=== PATIENT | female | born 1960 | race Caucasian/White ===

== ENCOUNTER 2021-06-11 01:13 | Observation (INO) | payer BC, SELFPAY ==
[2021-06-10 11:20] VITALS: BP 153/79; PULSE 82; RESP 16; TEMP 36.1; O2SAT 100
[2021-06-10 23:05] VITALS: BMI 24.0
[2021-06-11] VITALS (12 sets, daily range): BP systolic 114–145; BP diastolic 57–86; PULSE 66–105; RESP 12–18; TEMP 35.9–37.1; O2SAT 93–100
--- NOTE | ~2021-06-11 | XR_ITS ---
EXAMINATION: XR chest 1V portable DATE: 06/11/2021 07:39 INDICATION: COVID positive presenting with shortness of breath and vomiting TECHNIQUE: frontal view of the chest was obtained. COMPARISON: None FINDINGS: The lungs are clear with no focal airspace opacities, pulmonary edema, pleural effusion or pneumothor ax. The cardiomediastinal silhouette is normal. Mall round opacities projecting over the metadiaphyse al regions of the bilateral humeri but with similar rounded opacity projecting across the lateral cor ebony of the right first rib suggesting these represent snaps or other object external to the patient r ather than sclerotic bone lesions. IMPRESSION: 1. No acute cardiopulmonary disease. 2. Round opacities projecting over the bilateral proximal humeri with additional project over the rig ht first rib likely representing material external to the patient, possibly snaps. Correlate with phy sical exam. Reviewed, dictated and finalized at location A. IMPRESSION: 1. No acute cardiopulmonary disease. 2. Round opacities projecting over the bilateral proximal humeri with additiona l project over the right first rib likely representing material external to the patient, possibly snaps. Correlate with physical exam.
--- NOTE | ~2021-06-11 | NM_ITS ---
EXAMINATION: NM pulmonary perfusion DATE: 06/12/2021 11:29 INDICATION: Shortness of breath. TECHNIQUE: 5.2 mCi Tc-99m MAA was administered intravenously for perfusion images. Scintigraphic karen ges of the chest were obtained. COMPARISON: Chest single view 06/11/2021 FINDINGS: Perfusion images show large defects in the upper lobes correlating with emphysema on radiographs. IMPRESSION: 1. Pulmonary embolism absent (low probability for pulmonary embolism). Reviewed, dictated and finalized at location A.
--- NOTE | 2021-06-11 00:02 | ADMGEN ---
This patient, Maureen Montgomery, was admitted to IMU Room 231-01. Patient/family oriented to hospital policies and general routines including ID bracelet, bed and alarms, visiting hours, pain management, procedures, bathroom and other care routines, personal items, smoking policy, room service/diet, and visiting hours. Information on how to activate the Rapid Response Team has been discussed. Patient/Family are encouraged to report perceived risks to care and to ask questions if they do not understand what they are told or what they should do.
--- NOTE | 2021-06-11 01:15 | ECG_ITS ---
Measurements Intervals [place] Rate: 76 P: 48 OR: 148 QRS: -17 QRSD: 98 T: 9 QT: 387 QTc: 435 Interpretive Statements SINUS RHYTHM WITH SINUS ARRHYTHMIA BASELINE ARTIFACT- V3-V6 NORMAL ECG Electronically Signed On 06-11-2021 17:09:08 CDT by Aroldo Yo D.O.
[2021-06-11 02:51] LABS: Lactic Acid Reflex 0.6 mmol/L (0.7-2.1)
[2021-06-11 02:52] LABS: Anion Gap 5 mmol/L (8-16); Blood Urea Nitrogen 10 mg/dL (7-17); Calcium 8.8 mg/dL (8.4-10.2); Carbon Dioxide 25 mmol/L (22-30); Chloride 103 mmol/L (98-107); Estimated Glomerular Filt Rate > 60; Glucose 104 mg/dL (65-110); Lactate Dehydrogenase 339 U/L (313-618); Magnesium 1.8 mg/dL (1.6-2.3); Phosphorus 4.2 mg/dL (2.5-4.5); Potassium 3.7 mmol/L (3.4-5.0); Sodium 133 mmol/L (137-145)
[2021-06-11 03:04] LABS: Troponin I < 0.012 ng/mL (0.000-0.034)
[2021-06-11 03:51] LABS: Fibrinogen < 60 mg/dl (215-510)
[2021-06-11] MEDS: MAG HYDROX/AL HYDROX/SIMETH 30 ML UDC PO ×2 (04:13→13:45)
[2021-06-11] MEDS: ACETAMINOPHEN 325 MG TABLET 650 MG PO ×3 (04:14→20:46)
[2021-06-11 04:17] LABS: Add Urine Microscopic? YES; Appearance Urine Clear (Clear); Bilirubin Urine Negative (Negative); Blood Urine Negative (Negative); Color Urine Straw (Yellow); Glucose Urine UA Negative (Negative); Ketones Urine Trace mg/dL (Negative); Leukocyte Esterase Ur Negative LEU/UL (Negative); Mucus Urine Rare /lpf; Nitrate Urine Negative (Negative); Protein Urine Negative (Negative); RBC Urine 0-2 /hpf (0-2); Urobilinogen Urine Negative mg/dL (<2.0); WBC Urine 0-3 /hpf
[2021-06-11 05:21] LABS: Specific Grav Ur 1.003 (1.001-1.035)
--- NOTE | 2021-06-11 05:25 | PM.IMHP ---
H&P: HPI History of Present Illness Date/Time: 06/11/21 05:25 Chief Complaint: Chest pain Narrative: This is a 60-year-old female with known significant past medical history who presented to outside hospital emergency room department with complaints of chest pain with inspiration, patient had tested positive for COVID-19. A D-dimer was elevated. Patient has allergy to IV dye and decision was made to transfer patient for possible acute pulmonary emboli for further assessment. At the time of my visit patient denied any rigors any chills any fevers any shortness of breath cough sputum production but has had generalized malaise body aches and pains and pain with deep inspiration. Review of Systems Review of Systems: Generalized malaise, positive COVID-19, chest pain on inspiration. Constitutional: Constitutional: Denies chills, Reports fatigue, Denies fever(s), Reports lethargy, Reports malaise, Reports poor appetite and Denies weakness Eyes: Eyes: Denies change in vision ENT: Reports epistaxis, Denies nasal congestion, Denies nasal discharge, Denies nasal obstruction and Denies odynophagia Cardiovascular: Cardiovascular: Denies irregular heart rhythm, Denies lightheadedness, Denies radiating jaw, neck or arm pain, Denies palpitations and Denies orthopnea Respiratory: Respiratory: Reports pain on inspiration and Reports dyspnea Gastrointestinal: Gastrointestinal: Denies abdominal pain, Denies dyspepsia, Denies diarrhea, Denies nausea and Denies vomiting Genitourinary: Genitourinary: Reports no additional female genitourinary complaints Musculoskeletal: Musculoskeletal: Reports no additional musculoskeletal complaints Integumentary/Breasts: Skin/Breast: Reports system reviewed and no additional complaints, except as docu Neurologic: Reports system reviewed and no additional complaints, except as documented Psychiatric: Psychiatric: Reports no additional psychiatric complaints Endocrine: Endocrine: Reports no additional endocrine complaints Hematologic/Lymphatic: Hematologic/Lymphatic: Reports no additional hematologic/lymphatic complaints Allergic/Immunologic: Allergic/Immunologic: Reports no additional allergic/immunologic complaints [facility] Family History Family History (Updated 06/11/21 @ 00:21 by Magdalena Lopez RN) Other Unknown family medical history Social History Social History Years smoked: 30 Smoking status: Light tobacco smoker Tobacco type: cigarettes Additional smoking assessment comments: smokes 2 to 3 cigarettes a day Alcohol intake: current Drinks per week: 2 Substance use: never Substance use type: does not use Spiritual care concerns: No Meds Home Medications and Allergies Home Medications Medication Instructions Recorded Confirmed Type ibuprofen 800 mg PO Q6H PRN 06/10/21 06/10/21 History Allergies Allergy/AdvReac Type Severity Reaction Status Date / Time diphenhydramine Allergy Mild Other Verified 06/11/21 00:20 [From Benadryl Allergy] Vital Signs Vital Signs - 24 hr 06/10/21 11:20 06/11/21 00:00 06/11/21 03:38 Temperature 97 F L Pulse Rate 82 84 88 Respiratory Rate 16 16 Blood Pressure 153/79 H Pulse Oximetry 100 100 06/11/21 04:00 Temperature 98.7 F Pulse Rate 89 Respiratory Rate 18 Blood Pressure 145/86 H Pulse Oximetry 97 Exam Narrative: Patient is laying in bed Const: General: comfortable, no acute distress, well developed, alert, awake and other (Well-appearing) Nutritional Appearance: thin Orientation/consciousness: patient oriented x3 HENMT: Head: normal to inspection, normocephalic and atraumatic Ears: hearing grossly normal bilaterally General nose exam: Normal external nose present Face and sinus: normal facial exam Mouth: Yes Normal oral and palatal mucosa present Eyes: General: appearance normal, both eyes and all related structures Alignment and Position: alignment normal Sclera: sclerae normal Pupils:
[2021-06-11] MEDS: ENOXAPARIN 40 MG/0.4 ML SYRINGE SUB-Q (09:22)
--- NOTE | 2021-06-11 12:16 | PM.IMPN ---
Progress Note: A&P Assessment and Plan (1) Pneumonia due to 2019 novel coronavirus: Code(s): U07.1 - COVID-19; J12.82 - Pneumonia due to coronavirus disease 2019 Status: Acute Assessment and Plan: Not requiring oxygen and no pneumonia seen on chest CT on outside area hospital records -continue supportive care -no indication for remdesivir or Decadron at this time -patient would likely benefit from monoclonal antibodies at discharge (2) D-dimer, elevated: Code(s): R79.89 - Other specified abnormal findings of blood chemistry Status: Acute Assessment and Plan: Patient was transferred to this facility due to mildly elevated D-dimer 0.6 and chest pain. At this time, the suspicion is very low for PE. She is not requiring any oxygen, troponin negative, heart rate 76, EKG no signs of heart strain, and her chest pain is improving but intermittent. d-dimer likely elevated due to active covid infection. A V/Q scan was ordered due to the patient's allergy to CT contrast and Benadryl. The patient and family understand the V/Q scan may not be able to be performed in entirety due to the COVID diagnosis and may be unrevealing. I do not think she needs full dosing of Lovenox at this time. Continue with prophylactic dosing 40 mg daily. Likely discharge tomorrow if patient improves and testing is complete. Time Spent With Patient Time with patient: 25 - 35 minutes Subjective Date/time seen: 06/11/21 12:16 Interval history: Pt is a 60-year-old female here for COVID and PE workup. Patient was seen today and states she is feeling good. She has a dry cough that she says is better than it has been. She states she occasionally gets stabbing like left-sided chest pain when she is up walking. She feels short of breath during this chest pain which lasts a few seconds but then resolves on its own. It is not reproducible and does not feel heavy. She denies hemoptysis, nausea, vomiting, fevers, chills, abdominal pain, or leg swelling. She states she has felt achy and overall run down. She did have a fall last week and fell back on her back. She has chronic back pain which hurts a little bit more due to this fall. She has no lightheadedness or dizziness and does not feel weak. Spoke with the son, Brigido about plan of care. He is in agreement for staying overnight for V/Q scan although he understands that since she has COVID it may not be complete. We will also check an echo. Heart failure Review of Systems Review of Systems: All systems reviewed & are unremarkable except as noted in HPI and below Exam Narrative: General: Well developed well nourished patient in NAD HEENT: normocephalic Neck: supple Neuro: Alert and oriented x4 CV:RRR. Tele with normal sinus rhythm without alarm reviews Resp: Slightly decreased breath sounds bilaterally, pretty clear to auscultation Abd: Soft, non distended. No pain to palpation. Positive bowel sounds Extremities: No swelling, erythema, or pain to palpation. Objective Data Vital Signs Vital Signs: Vital Signs - 24 hr 06/11/21 00:00 06/11/21 03:38 06/11/21 04:00 Temperature 98.7 F Pulse Rate 84 88 89 Respiratory Rate 16 18 Blood Pressure 145/86 H Pulse Oximetry 100 97 06/11/21 06:00 06/11/21 08:00 06/11/21 11:50 Temperature 98.5 F 98.3 F Pulse Rate 78 102 H 76 Respiratory Rate 14 12 Blood Pressure 133/80 128/76 Pulse Oximetry 98 98 Intake/Output Intake/Output: Intake & Output 06/08/21 06/09/21 06/10/21 06/11/21 23:59 23:59 23:59 23:59 Intake Total 240 Output Total 1000 Balance -760 Meds/Results Medications: Active Medications Generic Name Dose Route Start Last Admin Trade Name Freq PRN Reason Stop Dose Admin Acetaminophen 650 mg 06/11/21 01:12 06/11/21 04:14 Acetaminophen 325 Mg Tablet PO 650 mg Q4H PRN Administration Mild Pain (1-3) or Fever Al Hydrox/Mg Hydrox/Simethicone 30 ml
--- NOTE | 2021-06-11 17:55 | PC.NURSE ---
Pt. transported @ [id number]. Report per ELIE Dye. Patient's call light within reach and is oriented of its use.
[2021-06-12] VITALS: PULSE 66
--- NOTE | 2021-06-12 | ECHO_ITS ---
Patient Info Name: Maureen Montgomery Age: 60 years : 1960 Gender: Female Ht: 59 in Wt: 119 lbs BSA: 1.51 m2 HR: 73 bpm BP: 145 / 86 mmHg Exam Date: 06/12/2021 9:42 AM Exam Location: [facility] Patient Status: Inpatient Admit Date: 06/11/2021 Staff Ordering Physician: Rhoda Willson MD Barrel Cutter: Edvin Mendoza, EDUARDA, RT Attending Provider: Haylee Bowers PA-C Referring Physician: Anamika ROBBINS; Exam Type: CA echo doppler color flow Study Info Indications R07.9 - Chest pain, unspecified Complete two-dimensional, color flow and Doppler transthoracic echocardiogram is performed. Summary 1. Complete two-dimensional, color flow and Doppler transthoracic echocardiogram is performed. 2. Left ventricular chamber dimension is normal. 3. Left ventricular systolic function is normal, estimated at 60-65%. 4. The left ventricular diastolic function is grade I diastolic dysfunction. 5. E/e' 10 is mildly elevated. 6. Global longitudinal strain is normal at -18.5%. Left Ventricle E/e' 10 is mildly elevated. Global longitudinal strain is normal at -18.5%. Left ventricular chamber dimension is normal. Left ventricular systolic function is normal, estimated at 60-65%. The left ventricular diastolic function is grade I diastolic dysfunction. Right Ventricle Right ventricular systolic function is normal and with normal TAPSE 1.8 cm. Right ventricular chamber dimension is normal. Left Atria Left atrial chamber dimension is normal. Right Atria Right atrial chamber dimension is normal. Aortic Valve The aortic valve is trileaflet. There is no aortic valve stenosis. There is no aortic valve regurgitation. Pulmonic Valve There is no pulmonic regurgitation. Mitral Valve There is no mitral valve stenosis. There is no mitral valve regurgitation. Tricuspid Valve There is no tricuspid valve regurgitation. Pericardium/Pleural There is no pericardial effusion. Inferior Vena Cava Normal inferior vena cava with >50% collapse upon inspiration consistent with normal right atrial pressure, 5 mmHg. Aorta The aortic root size at the sinus of Valsalva is normal. Left Ventricular Outflow Tract Name Value Normal LVOT 2D LVOT Diameter 1.9 cm LVOT Doppler LVOT Peak Gradient 3 mmHg LVOT Mean Gradient 2 mmHg LVOT VTI 18 cm LVOT VTI/AV VTI Ratio 0.7 LVOT Stroke Volume 49 ml LVOT CO 3.7 l/min LVOT CI 2.5 l/min/m2 Mitral Valve Name Value Normal MV Doppler MV Decel [place] 297 cm/s2 MV PHT 68 ms MV Area (PHT) 3.2 cm2 4.0-5.0 MV D
[2021-06-12 03:42] VITALS: BP 115/70; PULSE 82; RESP 18; TEMP 36.9; O2SAT 98
[2021-06-12 04:00] VITALS: PULSE 76
[2021-06-12] MEDS: ACETAMINOPHEN 325 MG TABLET 650 MG PO (05:23)
[2021-06-12 06:05] LABS: Basophils Percent Auto 0.9 % (0.2-1.2); Eosinophils Percent Auto 0.9 % (0-4.4); Hematocrit 38.1 % (37.0-47.0); Hemoglobin 12.4 g/dL (12.0-15.0); Lymphocytes Absolute Auto 0.91 K/mm3 (0.9-3.2); Lymphocytes Percent Auto 40.1 % (18.3-44.2); Mean Corpuscular HGB Conc 32.5 g/dl (32-36); Mean Corpuscular Hemoglobin 29.8 pg (26-34); Mean Corpuscular Volume 91.6 fl (80-100); Mean Platelet Volume 9.7 fl (7.4-10.4); Monocytes Absolute Auto 0.3 K/mm3 (0.1-0.6); Monocytes Percent Auto 12.8 % (2.6-8.5); Neutrophils Percent Auto 45.3 % (45.5-73.1); Platelet Count Result 188 k/mm3 (150-375); Red Blood Count 4.16 M/mm3 (4.2-5.4); Red Cell Distribution Width 13.3 % (11.5-14.5); White Blood Count 2.3 K/mm3 (4.5-10.0)
[2021-06-12 06:20] LABS: D Dimer 0.41 ug/mL (<0.48)
[2021-06-12 06:28] LABS: Anion Gap 7 mmol/L (8-16); Blood Urea Nitrogen 10 mg/dL (7-17); Calcium 8.7 mg/dL (8.4-10.2); Carbon Dioxide 26 mmol/L (22-30); Chloride 102 mmol/L (98-107); Estimated Glomerular Filt Rate > 60; Glucose 91 mg/dL (65-110); Potassium 4.3 mmol/L (3.4-5.0); Sodium 135 mmol/L (137-145)
[2021-06-12 06:29] LABS: Fibrinogen 183 mg/dl (215-510)
[2021-06-12 06:31] LABS: NT Pro B Type Natriuretic Pept 33 pg/mL (5-100)
[2021-06-12 08:00] VITALS: BP 121/74; PULSE 84; PULSE 90; RESP 14; TEMP 37.4; O2SAT 98
[2021-06-12] MEDS: DOCUSATE SODIUM 100 MG CAPSULE PO (08:02)
[2021-06-12] MEDS: ENOXAPARIN 40 MG/0.4 ML SYRINGE SUB-Q (08:02)
[2021-06-12 11:37] LABS: CRP < 0.5 mg/dL (<1.0)
[2021-06-12 12:00] VITALS: BP 116/75; PULSE 84; PULSE 87; RESP 14; TEMP 37.5; O2SAT 99
--- NOTE | 2021-06-12 14:32 | PM.DS ---
DS: Admitting Diagnosis Discharge Date Date of service 06/12/2021 at 2:00 p.m. Admitting Diagnosis COVID-19 DS: Discharge Diagnosis Discharge Diagnosis (1) Pneumonia due to 2019 novel coronavirus: Code(s): U07.1 - COVID-19; J12.82 - Pneumonia due to coronavirus disease 2019 Status: Acute Assessment and Plan: Not requiring oxygen and no pneumonia seen on chest CT on outside area hospital records -continue supportive care -no indication for remdesivir or Decadron at this time -patient would likely benefit from monoclonal antibodies at discharge (2) D-dimer, elevated: Code(s): R79.89 - Other specified abnormal findings of blood chemistry Status: Acute Assessment and Plan: Patient was transferred to this facility due to mildly elevated D-dimer 0.6 and chest pain. At this time, the suspicion is very low for PE. She is not requiring any oxygen, troponin negative, heart rate 76, EKG no signs of heart strain, and her chest pain is improving but intermittent. d-dimer likely elevated due to active covid infection. A V/Q scan was ordered due to the patient's allergy to CT contrast and Benadryl. The patient and family understand the V/Q scan may not be able to be performed in entirety due to the COVID diagnosis and may be unrevealing. I do not think she needs full dosing of Lovenox at this time. Continue with prophylactic dosing 40 mg daily. Likely discharge tomorrow if patient improves and testing is complete. DS: Summary Hospital Course Hospital Course: Patient is a 60-year-old female with no known past medical history who presented from [facility] for evaluation of elevated D-dimer. Patient also stated that she had fevers with body aches and weakness and had tested positive for COVID-19. Patient was sent here for a V/Q scan to rule out PE. This was due to the patient's allergies IV dye and Benadryl. Patient stated that she feels better than she did when she was sent here. She does state that she has some rib pain and some back pain which she attributes to lying in the bed and possibly from the EKG patches. She had a V/Q scan which showed low probability of PE. She also had an echo done that showed an EF at 60-65% with grade 1 diastolic dysfunction. Today patient has no complaints and is ready to go home. I did give for execution about getting guaifenesin and staying active however quarantine for the next 10 days. Since admission patient has only received Lovenox 40 mg subQ daily for DVT prophylaxis. Patient denies fevers, sweats, chills, nausea, vomiting, diarrhea, constipation. Status at Discharge Functional status at discharge: independent ambulation Overall status at discharge: patient is progressing back to baseline Time Spent with Patient Time attestation: Total time spent providing and/or coordinating discharge services: 36 minutes Time spent: Greater than 30 minutes Specific discharge activities: Chart review, lab review, diagnostic testing, physical exam, interview, education, documentation. Exam Const: General: comfortable, no acute distress, well developed, alert, awake and other (Well-appearing) Nutritional Appearance: thin Orientation/consciousness: patient oriented x3 HENMT: Head: normal to inspection, normocephalic and atraumatic Ears: hearing grossly normal bilaterally General nose exam: Normal external nose present Face and sinus: normal facial exam Mouth: Yes Normal oral and palatal mucosa present Eyes: General: appearance normal, both eyes and all related structures Alignment and Position: alignment normal Sclera: sclerae normal Pupils: Equal, round and reactive pupils present EOM: EOMs intact bilaterally Neck: Neck: normal visual inspection, full ROM, no lymphadenopathy, supple and no JVD Thyroid: thyroid normal Lymphatic: no lymphadenopathy noted Resp: Effort & Inspection: normal respiratory effort, able to speak in complete sentences and no audible w
[2021-06-12 14:39] VITALS: O2SAT 99
== END 2021-06-12 15:33 | disposition home or self-care (01) ==
LOC: ANHIMU 13:04 → ANH3MEDSUR 06-12 10:37 → ANHIMU 06-15 09:02
PROVIDERS: Physician Assistant; Admitting Provider Internal Medicine; PCP Family Medicine; Visit Provider Internal Medicine
DX: U07.1 COVID-19 (principal); J12.82 Pneumonia due to coronavirus disease 2019; R07.9 Chest pain, unspecified; F17.210 Nicotine dependence, cigarettes, uncomplicated; R79.89 Other specified abnormal findings of blood chemistry; R06.02 Shortness of breath
CPT/HCPCS: 36415; 71045; 78580; 80048; 81001; 82728; 83605; 83615; 83735; 83880; 84100; 84484; 85025; 85380; 85384; 86140; 93005; 93306; 96372; A9270; A9540; G0378; J1650